=== PATIENT | female | born 1995 | race Asian ===

== ENCOUNTER 2020-04-03 08:00 | Outpatient (CLI) | payer MEDICAID ==
[2020-04-03 18:59] LABS: BUN - BLOOD UREA NITROGEN 11 mg/dL (6-20); CALCIUM 9.5 mg/dL (8.5-10.3); CARBON DIOXIDE - CO2 28 mmol/L (21-32); CHLORIDE 99 mmol/L (101-111); CHOLESTEROL 186 mg/dL; CREATININE 0.5 mg/dL (0.4-1.0); GLUCOSE 295 mg/dL (70-100); HDL CHOLESTEROL 37 mg/dL; LDL CHOLESTEROL,CALCULATED 95 mg/dL; LDL/HDL RATIO 2.6 (<4.4); SODIUM 135 mmol/L (135-145); VLDL CHOLESTEROL 54 mg/dL
[2020-04-03 19:06] LABS: CREATININE,URINE 181.8 mg/dL; MICROALBUM/CREATININE RATIO,UR 172.7 ug/mg (<30.0); MICROALBUMIN,URINE 31.4 mg/dL (0-300.0)
[2020-04-03 20:52] LABS: HEMOGLOBIN A1c% 10.3 % (4.27-6.07)
== END 2020-04-03 23:59 | disposition home or self-care (01) ==
LOC: LAB.WCP 08:00
PROVIDERS: ATTEND Family Medicine
DX: Z00.00 Encounter for general adult medical examination without abnormal findings (principal); E11.9 Type 2 diabetes mellitus without complications
CPT/HCPCS: 36415; 80048; 80061; 82043; 82570; 83036; 83721; 84443